=== PATIENT | female | born 1940 | race Caucasian/White ===

== ENCOUNTER 2019-08-11 12:16 | Emergency (ER) | payer MEDICARE ==
[~2019-08-11 12:16] MED LIST: ISOVUE-370 76%-LOCM 1 ML ONE
--- NOTE | 2019-08-11 14:41 | CT ---
CT ABDOMEN AND PELVIS: Date: 08/11/19 COMPARISON: None. HISTORY: Left lower quadrant pain. TECHNIQUE: Axial CT imaging obtained at 5 mm intervals from the lung bases through the pubic symphysis with intr avenous contrast. Coronal and sagittal reformatted imaging obtained. FINDINGS: The visualized lung bases are unremarkable. Cardiac silhouette is prominent. No free intraperitoneal air. Liver, spleen, gallbladder, pancreas, adrenal glands, and kidneys are unremarkable. There is a focal area of wall thickening involving the sigmoid colon with pericolonic fat stranding w ithin the lower right hemipelvis. This involves a segment of the distal sigmoid colon measuring appro ximately 6-7 cm in length and is most consistent with acute diverticulitis. There is a second area of wall thickening and pericolonic fat stranding involving the mid/lower descending colon, suggesting a second area of acute diverticulitis. There is no evidence for bowel obstruction. The appendix is not discretely visualized, but no right lower quadrant inflammatory change is seen to suggest acute appe ndicitis. Scattered atherosclerotic calcification of the abdominal aorta and its branches noted. No drainable a bscess is seen at this time. No lymphadenopathy is noted within the abdomen or pelvis. There is lower lumbar spine degenerative change with bilateral facet hypertrophy and disc space narro wing/vacuum disc formation at L5-S1. No worrisome lytic or blastic bone lesion. IMPRESSION: Findings suggesting multifocal acute diverticulitis with involvement of the distal descending colon a nd the distal sigmoid colon within the pelvis. No drainable fluid collection or free intraperitoneal air is evident. Followup imaging following treatment advised to document resolution. Upon resolution of acute symptoms, direct visualization via colonoscopy may be beneficial to exclude an underlying ma ss lesion within the colon. POS: [facility]
== END 2019-08-11 14:24 | disposition home or self-care (01) ==
LOC: ERS 12:16
DX: K57.32 Diverticulitis of large intestine without perforation or abscess without bleeding (principal); I10 Essential (primary) hypertension
CPT/HCPCS: 74177; 96360; 96361; Q9966